=== PATIENT | male | born 1990 | race Caucasian/White ===

== ENCOUNTER 2021-07-12 09:08 | Emergency (ER) | payer OTHER ==
[~2021-07-12] VITALS: Ht 170.2 cm; Wt 97.5 kg
[2021-07-12] MEDS ORDERED: IBUP600 PO (11:41)
[2021-07-12] MEDS ORDERED: Roxicodone5 MG PO (11:41)
[2021-07-12 12:02] LABS: SARS-Cov-2 (COVID-19) PCR, MMC NEGATIVE (NEGATIVE)
== END 2021-07-12 12:02 | disposition home or self-care (01) ==
LOC: ER 09:08
PROVIDERS: Emergency Medicine
DX: S82.442A Displaced spiral fracture of shaft of left fibula, initial encounter for closed fracture (principal); S93.05XA Dislocation of left ankle joint, initial encounter; Z20.822 Contact with and (suspected) exposure to COVID-19; W10.9XXA Fall (on) (from) unspecified stairs and steps, initial encounter
CPT/HCPCS: 27788; 73590; 73600; 76000; 99152; 99284-25; J7030; U0004

== ENCOUNTER 2021-07-14 06:56 | Day surgery (SDC) | payer OTHER ==
[~2021-07-14] VITALS: Ht 170.2 cm; Wt 96.6 kg
[~2021-07-14 06:56] MED LIST: IBUP600 PO; Roxicodone5 MG PO
--- NOTE | 2021-07-14 07:52 | NUR ---
Ambulatory in Day SurgeryLungs clear T/O to Auscultation. History, Chart, Medications and Allergies reviewed before start of procedure.Patient confirms NPO status and agrees with scheduled surgery. Pre-Op teaching done. Pt verbalizes understanding. Patient States Post-Procedure ride home has been arranged. Patient reports completing Chlorhexadine shower X2 prior to admission to hospital.
--- NOTE | 2021-07-14 12:32 | NUR ---
Patient up independently AND steady. Discharge instructions reviewed with patient. Patient verbalizes understanding. Copy given to patient to take home. ALSO DISCUSSED DISCHARGE INSTRUCTIONS WITH FAMILY. Discharged via wheelchair to private car for ride home WITH FATHER GIVING PT RIDE HOME.
== END 2021-07-14 12:29 | disposition home or self-care (01) ==
LOC: ORSCMMR 06:56 → ORD 11:30 → ORSCMMR 12:29
PROVIDERS: Orthopaedic Surgery
PROC: 0QSK04Z Reposition Left Fibula with Internal Fixation Device, Open Approach (ICD-10-PCS; principal; 2021-07-14 08:45)
DX: S82.62XA Displaced fracture of lateral malleolus of left fibula, initial encounter for closed fracture (principal); S93.05XA Dislocation of left ankle joint, initial encounter
CPT/HCPCS: C1713; J0171; J0690; J1100; J2250; J2405; J2704; J3010; J7120

== ENCOUNTER 2023-08-11 11:44 | Emergency (ER) | payer BC ==
[~2023-08-11] VITALS: Ht 167.6 cm; Wt 68.0 kg
[2023-08-11 11:58] VITALS: BP 133/74
== END 2023-08-11 14:27 | disposition home or self-care (01) ==
LOC: ER 11:44
DX: R51.9 Headache, unspecified (principal)
CPT/HCPCS: 96361; 96374; 96375; 99283-25; J0780; J1200; J1885; J7030